=== PATIENT | female | born 1985 | race Caucasian/White ===

== ENCOUNTER 2016-12-04 09:45 | Outpatient (CLI) | payer MEDICAID ==
[2017-02-05] MEDS ORDERED: PRENATAL VIT1 TAB PO (09:04)
[2017-02-05] MEDS ORDERED: COLACE-DPS100 MG PO (09:05)
[2017-02-05] MEDS ORDERED: NIPPLECREAM TP (09:05)
[2017-02-05] MEDS ORDERED: MOTRIN-DPS800 MG PO (09:05)
== END 2016-12-04 17:00 | disposition home or self-care (01) ==
LOC: BC 09:45 → 2LDRP 09:45 → BC 17:00
DX: O46.93 Antepartum hemorrhage, unspecified, third trimester (principal); Z3A.31 31 weeks gestation of pregnancy

== ENCOUNTER 2017-02-03 06:25 | Inpatient (IN) | payer MEDICAID ==
[~2017-02-03] VITALS: Ht 165.1 cm; Wt 84.8 kg
--- NOTE | ~2017-02-03 | FD ---
ADMIT: 02/03/2017 RM/LOC: [address] [facility] MR#: [id number] [address] [address] [address] [place] [address] Final Diagnosis SEX: F AGE: 31 : 1985 ADMISSION DATE: 02/03/2017 DISCHARGE DATE: 02/04/2017 FINAL DIAGNOSIS: Status post spontaneous vaginal delivery at term. PROCEDURE: 02/03/2017 spontaneous vaginal delivery with delivery of viable female, 7 pounds 2 ounces, Apgars 8 and 9. Marifer Conrad MD/ val JOB #: [id number] CC: Marifer Conrad MD, Attending Physician FAMILY PHYSICIAN, Family Physician
--- NOTE | 2017-02-03 18:16 | HP ---
ADMIT: 02/03/2017 RM/LOC: [address] [facility] MR#: [id number] [address] [facility] [address] [place], [place] [address] [address] [place] [address] History and Physical SEX: F AGE: 31 : 1985 DATE OF SERVICE: CHIEF COMPLAINT: Induction of labor. HISTORY OF PRESENT ILLNESS: This is a 31-year-old, -0-2-2, with an intrauterine at 39 weeks 2 days via LMP who presents for elective induction of labor. The patient denies contractions, leaking fluid, or vaginal bleeding. She reports normal movement. has been complicated by a failed 1 hour glucose tolerance test and positive 3-hour glucose tolerance test. also complicated by anxiety and 3rd trimester spotting. She has also had excessive weight gain this gaining over 40 pounds. PAST MEDICAL HISTORY: Anxiety, cyst of left ovary. SURGICAL HISTORY: She denies surgical history. MEDICATIONS: vitamin. ALLERGIES: NO KNOWN MEDICAL ALLERGIES. SOCIAL HISTORY: She denies alcohol use, recreational drug use, or tobacco use. Father of baby Denver is involved with the patient in the baby's care. FAMILY HISTORY: Her mother has hypertension. REVIEW OF SYSTEMS: She denies headache, changes of vision, chest pain, or shortness of breath. No nausea, vomiting, diarrhea, or constipation. She denies swelling in bilateral lower extremities. PHYSICAL EXAM: VITAL SIGNS: Blood pressure 135/73, pulse 90-120, respiratory rate 16, she is afebrile, and saturating 96% on room air. GENERAL: She is alert and oriented x3. No acute distress. HEART: Regular rate and rhythm. LUNGS: Clear to auscultation bilaterally. ABDOMEN: Gravid. Nontender to palpation. Estimated weight 3400 g. EXTREMITIES: Distal pulses 2+. No edema. Sterile vaginal exam, 1.5, 50 and -2 per nursing staff. heart tones 150, baseline, positive accelerations no decelerations. Moderate variability. No contractions noted on tocometer at time of presentation. LABS: Blood type is A positive. Direct antibody screen negative. GBS negative. 3-hour fasting glucose tolerance test, fasting is 88, 1 hour is 142, 2 hours is 123, and 3 hours is 98. Hemoglobin 12.5, platelets 299. Rubella immune. RPR negative. Hepatitis negative. Gonorrhea and chlamydia negative. HIV negative. ADMIT: 02/03/2017 RM/LOC: [address] [facility] MR#: [id number] [address] [address] [address] [place] [id number] History and Physical SEX: F AGE: 31 : 1985 ASSESSMENT AND PLAN: This is a 31-year-old, 5 para 2-0-2-2 with intrauterine at 39 weeks 2 days here for elective induction of labor. 1. Admit to Birthing Center. Consent obtained for vaginal delivery, assistive vaginal delivery, or section. Should patient need a blood transfusion, she does consent to a transfusion. Blood type is A positive. We will draw CBC at time of admission. 2. GBS negative. No antibiotic prophylaxis at this time. 3. heart tones reassuring. 4. Given cervical exam and Mallory score of 5, we will plan for Cespedes bulb, mechanical dilation with Pitocin augmentation and induction. The patient was seen and discussed with staff on day of admission. Evy Arango MD Resident / Marifer Conrad MD / jelly JOB #: [id number] CC: Marifer Conrad, Attending Physician FAMILY PHYSICIAN, Family Physician
[2017-02-05] MEDS ORDERED: PRENATAL VIT1 TAB PO (09:04)
[2017-02-05] MEDS ORDERED: MOTRIN-DPS800 MG PO (09:05)
[2017-02-05] MEDS ORDERED: COLACE-DPS100 MG PO (09:05)
[2017-02-05] MEDS ORDERED: NIPPLECREAM TP (09:05)
--- NOTE | 2017-02-27 13:44 | OR ---
ADMIT: 02/03/2017 RM/LOC: [address] [facility] MR#: [id number] [id number] [place], [place] [address] [address] [place] [address] Operative/Delivery Room Report SEX: F AGE: 31 : 1985 Corrected: 02/06/2017 0635 nj SURGERY DATE: 02/03/2017 SURGEON: Marifer Conrad MD PROCEDURE: Spontaneous vaginal delivery. RESIDENT PHYSICIAN: Evy Arango MD Resident PRE PROCEDURE DIAGNOSES: 1. A 31-year-old, G5, P2-0-2-2, with intrauterine at 39 weeks and 2 days via LMP. 2. Anxiety. 3. Failed 1-hour glucose tolerance test, passed 3-hour glucose tolerance test. 4. Vaginal bleeding in third trimester. POSTPROCEDURE DIAGNOSES: 1. A 31-year-old, G5, P2-0-2-2, with intrauterine at 39 weeks and 2 days via LMP. 2. Anxiety. 3. Failed 1-hour glucose tolerance test, passed 3-hour glucose tolerance test. 4. Vaginal bleeding in third trimester. 5. Spontaneous vaginal delivery. 6. Second-degree laceration, status post repair. PROCEDURE: 1. Spontaneous vaginal delivery. 2. Second-degree perineal laceration repair. FINDINGS: Viable female with a weight of 3220 g. scores 8 and 9. ANESTHESIA: None, ESTIMATED BLOOD LOSS: 200 mL. HOSPITAL COURSE: This is a 31-year-old, G5, P2-0-2-2 with intrauterine at 39 weeks and 2 days via LMP, who presented to Labor and Delivery for elective induction of labor. Cespedes bulb was placed for mechanical cervical dilation. Pitocin induction was performed. The patient ultimately progressed to complete and precipitous delivery occurred in the presence of nursing staff at 1433 hours. Upon my arrival at 1434 hours, the patient was supine with a vigorous female infant on her abdomen. The patient was placed in a dorsal lithotomy position and prepped and draped in a sterile fashion. The infant was noted to be vigorous and crying. scores were 8 and 9. Weight of 3220 g. After ADMIT: 02/03/2017 RM/LOC: [address] [facility] MR#: [id number] [address] [address] [address] [address] Operative/Delivery Room Report SEX: F AGE: 31 : 1985 delayed cord clamping, the cord was clamped and cut. Cord blood was collected. Cord gas was not collected. Pitocin was administered per protocol. The placenta delivered spontaneously with a three-vessel cord. Normal placental anatomy on exam. The vagina, cervix, and perineum were inspected for lacerations. A second-degree laceration was noted and was repaired with 3-0 Vicryl suture in a normal fashion. All tissues were found to be hemostatic and all counts were correct. The patient tolerated the procedure well. Mother and infant stable in mother's room at the conclusion of the procedure. Dr. Marifer Conrad was present for the above procedure as documented. Evy Arango MD Resident / Marifer Conrad MD / jelly JOB #: [id number] CC: Marifer Conrad, Attending Physician NO FAMILY PHYSICIAN, Family Physician Corrected: 02/06/2017 0635 nj[address]ia [address] rosario
== END 2017-02-04 16:30 | disposition home or self-care (01) | DRG 775 ==
LOC: 2LDRP 06:25 → BC 06:25 → 2LDRP 07:01 → BC 02-08 08:00
PROVIDERS: ADMIT Obstetrics & Gynecology
DX: O62.3 Precipitate labor (principal); O70.1 Second degree perineal laceration during delivery; Z3A.39 39 weeks gestation of pregnancy; Z37.0 Single live birth